=== PATIENT | female | born 2000 | race American Indian/Alaskan Native ===

== ENCOUNTER 2021-01-11 12:34 | Emergency (ER) | payer SELFPAY ==
[2021-01-11 12:38] VITALS: BP 127/94
[2021-01-11] MEDS ORDERED: IBUPROFEN 600 MG TAB PO ONE (12:42)
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
== END 2021-01-11 13:50 | disposition home or self-care (01) ==
LOC: ED 12:34
DX: S59.902A Unspecified injury of left elbow, initial encounter (principal); Z79.899 Other long term (current) drug therapy; X58.XXXA Exposure to other specified factors, initial encounter; Y93.89 Activity, other specified; Y92.89 Other specified places as the place of occurrence of the external cause; Y99.8 Other external cause status
CPT/HCPCS: 99283